=== PATIENT | female | born 1990 | race Caucasian/White ===

== ENCOUNTER 2018-04-19 03:38 | Inpatient (IN) | payer OTHER ==
[2018-04-19 04:42] VITALS: BMI 25.8
[2018-04-19] MEDS ORDERED: Lactated Ringer's 1,000 ML IV ONE ×2 (04:42)
[2018-04-19] MEDS ORDERED: Sodium Citrate/Citric Acid 15 ml Sol PO ONE (04:42)
[2018-04-19] MEDS ORDERED: cefOXitin IV 2 gm in Dextrose 2 GM/50 ML BAG IVPB ONE (04:42)
[2018-04-19] MEDS ORDERED: Lactated Ringer's 1,000 ML IV SCH (04:45)
--- NOTE | 2018-04-19 05:04 | OBHP ---
Datetime: 04/19/2018 04:45 IP Adm Impression: Term, intrauterine ; Active labor; Intact Membranes IP Admit Plan: Admit to unit; Initiate Section protocol Admit Comment, IP Provider: 28 y.o. , LMP 07/27/17, TAB 05/03/18, EGA 37w 6d confirmed by ultr asound, c/o Ctx - onset 2200 hours; now every 5 minutes, pain scale 8/10 to 9/10. (+) AFM; denies VB. [place] moist in the vagina approx 0411hours. care: Dr. Laci Beverly: noted for anemia. Also treated for UTI 2 weeks ago P Ob: C/S, 12/01 2012, male, 2.2 Kg, [place]. No other complications. Spont Ab x 2, both in 2016, jessica th at approx "2 weeks". 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 Denies abnormal Pap, STIs or myoma PMH: enies PSH: C/S Meds: PNV, iron - each QD NKDA Soc Hx: denies tobacco, illicit drug or EtOH use. x 7 years. 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 Fam Hx: MOther alive 45 y.o. Father alive 49 y.o., both no med issues. No known fam h/o cancer P.E.: as above. WD in discomfort with pain of contractions. Awake, alert, oriented to time, person and place. Pleasant and cooperative. present Assessment: 28 y.o. P1021, 37w 6d, prev C/S - early labor. No evidence of PROM. CAtegory 1 tracing . Patient last ate 2030 hours; last drank 2200 hours. Clinically stable. Plan: 1) Admit 2) NPO 3) Admission labs 4) Continuous EFM 5) Abdominal prep and shave 6) Buck 7) Notify anesthesia8) Notify peds 8) Mefoxin, supervisor electronics inspection to O.R. 9) Patient supervisor electronics inspection to O.R. - as per, and discussed with, Dr. Beverly Pelvic Type - PN: Adequate Extremities - PN: Normal Abdomen - PN: Normal Back - PN: Normal Breast - PN: Normal Lungs - PN: Normal Heart - PN: Normal Thyroid - PN: Not Done Neurologic - PN: Normal HEENT - PN: Normal General - PN: Normal Presentation-Admit: Vertex FHR - Baseline A Provider: 150 Membranes, Provider: Intact Contraction Comments Provider: 2 Comments, ACOG Physical Exam: Abdomen: Gravid. Firm, with contractions. Healed Pfannenstiel scar. Fu ndal height 37 cm. otherwise, non tender in all quadrants Perineum: moist - clear, mucous. Negative pooling; Negative nitrazine All other systems reviewed and are negative Gestation - Est Wks by US: 37w 6d EGA AdmitDate IP: 37.6 Vital Signs Provider: Reviewed IP Indication for Induction: Not Applicable IP Chief Complaint: Uterine contractions NICHD Variability Prov Fetus A: Moderate 6-25bpm NICHD Accel Fetus A IP Provider: 10X10 FHR Category Provider Fetus A: Category I NICHD Decel Fetus A IP Provider: None Dilatation, Provider: 1 Effacement, Provider: 40 Station, Provider: -1 Genitourinary Exam: Normal DTRs - PN: Normal
[2018-04-19 05:22] LABS: BASO # 0.1 K/uL (0.0-0.2); BASO % 0.5 % (0.0-2.0); EOS # 0.2 K/uL (0.0-0.7); EOS % 1.4 % (0.0-4.0); HEMOGLOBIN 13.3 g/dL (11.0-16.0); LYMPH # 1.9 K/uL (1.0-4.3); LYMPH % 15.2 % (20.0-40.0); MEAN CELL VOLUME 88.4 fL (81.0-99.0); MEAN CORPUSCULAR HEMOGLOBIN 29.9 pg (27.0-31.0); MEAN CORPUSCULAR HGB CONC 33.9 g/dL (33.0-37.0); MEAN PLATELET VOLUME 7.5 fL (7.2-11.7); MONO # 1.3 K/uL (0.0-0.8); MONO % 10.7 % (0.0-10.0); NEUT # 8.9 K/uL (1.8-7.0); NEUT % 72.2 % (50.0-75.0); NRBC % 0.1 % (0.0-2.0); RBC 4.45 Mil/uL (3.80-5.20); RED CELL DISTRIBUTION WIDTH 16.4 % (11.5-14.5); SQUAMOUS EPITHIAL < 1 /hpf (0-5); URINE BACTERIA RARE (<OCC); URINE BILIRUBIN NEGATIVE (NEGATIVE); URINE CLARITY Clear (Clear); URINE COLOR Colorless (YELLOW); URINE GLUCOSE (UA) NORMAL (Normal); URINE LEUKOCYTE ESTERASE NEG Leu/uL (Negative); URINE PROTEIN NEGATIVE (NEGATIVE); URINE UROBILINOGEN NORMAL mg/dL (0.2-1.0); WHITE BLOOD COUNT 12.4 K/uL (4.8-10.8)
[2018-04-19] MEDS ORDERED: cefOXitin IV 2 gm in Saline 2 GM/50 ML BAG IVPB ONE (05:36)
[2018-04-19] MEDS ORDERED: Morphine 1 mg/ml preservative-free Inj(Duramorph) ONE ×2 (05:50→07:10)
[2018-04-19 05:52] LABS: URINE BLOOD TRACE (NEGATIVE)
[2018-04-19] MEDS ORDERED: Oxytocin 20 units in LR 2,000 ML IV ONE (07:25)
[2018-04-19] MEDS ORDERED: DiphenhydrAMINE 50 mg/ml Inj IVP PRN (09:08)
[2018-04-19 16:53] LABS: RAPID PLASMA REAGIN NONREACTIVE (NONREACTIVE)
[2018-04-19] MEDS: ceFAZolin IV 1 gm in Dextrose 1 GM/50 ML BAG IVPB SCH (17:27)
[2018-04-19] MEDS: Gentamicin 80 mg in 0.9% NS 80 MG/100 ML BAG IVPB SCH (17:29)
[2018-04-20] MEDS: ceFAZolin IV 1 gm in Dextrose 1 GM/50 ML BAG IVPB SCH ×2 (00:32→08:29)
[2018-04-20] MEDS: Gentamicin 80 mg in 0.9% NS 80 MG/100 ML BAG IVPB SCH ×2 (02:06→11:05)
[2018-04-20] MEDS: Oxycodone/Acetaminophen 5/325 mg Tab PO PRN ×3 (05:46→20:01)
[2018-04-20 08:42] LABS: MEAN CELL VOLUME 89.4 fL (81.0-99.0); MEAN CORPUSCULAR HEMOGLOBIN 30.5 pg (27.0-31.0); MEAN CORPUSCULAR HGB CONC 34.1 g/dL (33.0-37.0); MEAN PLATELET VOLUME 7.3 fL (7.2-11.7); RBC 4.26 Mil/uL (3.80-5.20); RED CELL DISTRIBUTION WIDTH 16.9 % (11.5-14.5); WHITE BLOOD COUNT 17.5 K/uL (4.8-10.8)
[2018-04-20] MEDS: Prenatal Multivit/Folic Acid/Iron Tab PO SCH ×2 (10:06→10:08)
--- NOTE | 2018-04-20 13:35 | OBDS ---
DELIVERY PERSONNEL Delivery Doctor: Amanda Beverly MD Scrub Nurse: Madai Crews Bus [employer] Instructor: Liliana Duvall RN Anesthesiologist: Rob Bourne MD MATERNAL INFORMATION Medications in Delivery: Pitocin 20 units in 1000ml LR. Estimated Blood Loss (ml): 500 RN Comments: Rc/section to a live baby boy attended to by dr. Trevizo and Toby oliveros Rn. 9:9, sta ble, with father at mother's side. Provider Comments: Pelvic, Bladder and Omental Adhesion Previous C/Section in labor Old permanent suture material on fascia was removed. LABOR SUMMARY EDC: 05/04/2018 00:00 No. Babies in Womb: 1 Attempted: No Labor Anesthesia: None LABOR INFORMATION Onset of Labor: 04/18/2018 22:00 Group B Beta Strep: Negative Antibiotics # of Doses: 1 Antibiotics Time of Last Dose: 0700 MEMBRANES Membranes Rupture Method: Artificial Rupture of Membranes: 04/19/2018 08:07 Length of Rupture (hrs): 0.02 Amniotic Fluid Color: clear Amniotic Fluid Amount: Moderate Amniotic Fluid Odor: Normal STAGES OF LABOR Stage 3 hrs: 0 Stage 3 min: 1 Total Time in Labor hrs: 10 Total Time in Labor min: 9 CSECTION DELIVERY Primary Indication: Repeat Elective CSection Urgency: Elective CSection Incidence: Repeat Labor: Labor Elective: Elective CSection Incision: Lower Uterine Transverse BABY A INFORMATION Infant Delivery Date/Time: 04/19/2018 08:08 Method of Delivery: Born in Route : No : N/A Forceps: N/A Vacuum Extraction: N/A Shoulder Dystocia : No SHOULDER DYSTOCIA BABY A Infant Delivery Date/Time: 04/19/2018 08:08 PRESENTATION/POSITION BABY A Presentation: Cephalic Cephalic Presentation: Vertex Vertex Position: Left Occipital Anterior Breech Presentation: N/A PLACENTA INFORMATION BABY A Placenta Delivery Time : 04/19/2018 08:09 Placenta Method of Delivery: Manual Removal Placenta Status: Delivered SCORES BABY A Heart Rate 1 min: >100 bpm Resp Effort 1 min: Good Cry Reflex Irritability 1 min: Cough or Sneeze or Pulls Away Muscle Tone 1 min: Active Motion Color 1 min: Body [place], Extremities Blue SCORE 1 MIN: 9 Heart Rate 5 min: >100 bpm Resp Effort 5 min: Good Cry Reflex Irritability 5 min: Cough or Sneeze or Pulls Away Muscle Tone 5 min: Active Motion Color 5 min: Body [place], Extremities Blue SCORE 5 MIN: 9 INFORMATION BABY A Gestational Age at Delivery: 37.6 Gestational Status: Term Outcome : Liveborn Condition : Stable Infant Sex: Male IDENTIFICATION/MEDS BABY A ID Band Number: [id number] ID Band Location: Left Leg; Left Arm Sensor Applied: Yes Sensor Number: [id number] Sensor Location : Cord Clamp Vitamin K Given : Not Given Erythromycin Given: Not Given WEIGHT/LENGTH BABY A Infant Birthweight (gms): 2720 Weight (lb): 6 Infant Weight (oz): 0 Infant Length Inches: 18.50 Length cms: 47.0 CORD INFORMATION BABY A No. Cord Vessels: 3 Nuchal Cord : N/A True Knot: 0 Cord Blood Taken: Yes Infant Suction: Mouth; Nose ASSESSMENT BABY A Complications: None Physical Findings at Delivery: Within Normal Limits Infant Respirations: Appears Normal Insurance Coder/ALS Called : No Care By: and Alexei Transferred To: Remains with Mother
--- NOTE | 2018-04-20 13:35 | OBDS ---
DELIVERY PERSONNEL Delivery Doctor: Amanda Beverly MD Scrub Nurse: Madai Crews Electronic Communications Technician: Liliana Duvall RN Anesthesiologist: Rob Bourne MD MATERNAL INFORMATION Medications in Delivery: Pitocin 20 units in 1000ml LR. Estimated Blood Loss (ml): 500 RN Comments: Rc/section to a live baby boy attended to by dr. Trevizo and Toby oliveros Rn. 9:9, sta ble, with father at mother's side. Provider Comments: Pelvic, Bladder and Omental Adhesion Previous C/Section in labor Old permanent suture material on fascia was removed. LABOR SUMMARY EDC: 05/04/2018 00:00 No. Babies in Womb: 1 Attempted: No Labor Anesthesia: None LABOR INFORMATION Onset of Labor: 04/18/2018 22:00 Group B Beta Strep: Negative Antibiotics # of Doses: 1 Antibiotics Time of Last Dose: 0700 MEMBRANES Membranes Rupture Method: Artificial Rupture of Membranes: 04/19/2018 08:07 Length of Rupture (hrs): 0.02 Amniotic Fluid Color: clear Amniotic Fluid Amount: Moderate Amniotic Fluid Odor: Normal STAGES OF LABOR Stage 3 hrs: 0 Stage 3 min: 1 Total Time in Labor hrs: 10 Total Time in Labor min: 9 CSECTION DELIVERY Primary Indication: Repeat Elective CSection Urgency: Elective CSection Incidence: Repeat Labor: Labor Elective: Elective CSection Incision: Lower Uterine Transverse BABY A INFORMATION Infant Delivery Date/Time: 04/19/2018 08:08 Method of Delivery: Born in Route : No : N/A Forceps: N/A Vacuum Extraction: N/A Shoulder Dystocia : No SHOULDER DYSTOCIA BABY A Infant Delivery Date/Time: 04/19/2018 08:08 PRESENTATION/POSITION BABY A Presentation: Cephalic Cephalic Presentation: Vertex Vertex Position: Left Occipital Anterior Breech Presentation: N/A PLACENTA INFORMATION BABY A Placenta Delivery Time : 04/19/2018 08:09 Placenta Method of Delivery: Manual Removal Placenta Status: Delivered SCORES BABY A Heart Rate 1 min: >100 bpm Resp Effort 1 min: Good Cry Reflex Irritability 1 min: Cough or Sneeze or Pulls Away Muscle Tone 1 min: Active Motion Color 1 min: Body [place], Extremities Blue SCORE 1 MIN: 9 Heart Rate 5 min: >100 bpm Resp Effort 5 min: Good Cry Reflex Irritability 5 min: Cough or Sneeze or Pulls Away Muscle Tone 5 min: Active Motion Color 5 min: Body [place], Extremities Blue SCORE 5 MIN: 9 INFORMATION BABY A Gestational Age at Delivery: 37.6 Gestational Status: Term Outcome : Liveborn Condition : Stable Infant Sex: Male IDENTIFICATION/MEDS BABY A ID Band Number: [id number] ID Band Location: Left Leg; Left Arm Sensor Applied: Yes Sensor Number: [id number] Sensor Location : Cord Clamp Vitamin K Given : Not Given Erythromycin Given: Not Given WEIGHT/LENGTH BABY A Infant Birthweight (gms): 2720 Weight (lb): 6 Infant Weight (oz): 0 Infant Length Inches: 18.50 Length cms: 47.0 CORD INFORMATION BABY A No. Cord Vessels: 3 Nuchal Cord : N/A True Knot: 0 Cord Blood Taken: Yes Infant Suction: Mouth; Nose ASSESSMENT BABY A Complications: None Physical Findings at Delivery: Within Normal Limits Infant Respirations: Appears Normal [employer] Bus Driver/ALS Called : No Care By: and Alexei Transferred To: Remains with Mother
[2018-04-21] MEDS: Oxycodone/Acetaminophen 5/325 mg Tab PO PRN ×3 (01:56→17:53)
[2018-04-21] MEDS: Prenatal Multivit/Folic Acid/Iron Tab PO SCH (09:29)
[2018-04-22] MEDS: Oxycodone/Acetaminophen 5/325 mg Tab PO PRN (01:21)
[2018-04-22 09:22] VITALS: BP 108/75; PULSE 91; RESP 18; TEMP 97.8; O2SAT 100
[2018-04-22] MEDS: Prenatal Multivit/Folic Acid/Iron Tab PO SCH (09:45)
--- NOTE | 2018-04-22 10:43 | OBPPN ---
Datetime: 04/22/2018 10:40 PP Pain Prov: Within normal limits PP Breasts Prov: Normal PP Heart Prov: Normal PP Lungs Prov: Normal PP Abdomen/Uterus Prov: Normal PP Lochia Prov: Normal PP Vulva/Perineum Prov: Normal PP CVA Tenderness Prov: Normal PP Extremities Prov: Normal PP C/S Incision Prov: Normal PP Progress Prov: Normal PP Impression Prov: Normal progression PP Plan Prov: Continue present management IP PP Procedures: None Datetime: 04/20/2018 13:35 Vital Signs Provider PP: Within Normal Limits
--- NOTE | 2018-04-22 10:46 | OBDCSUM ---
Datetime: 04/22/2018 10:42 Discharged to, Provider: Home Follow up at, Provider: Dr. Beverly Disch Instr Activity: Normal activity Disch Instr Diet: Regular Discharge Instructions, Provider: Routine instructions given Discharge Diagnosis, Provider: Labor Discharge Time: 04/22/2018 10:43 Follow up in weeks, Provider: 4 weeks Disch Referrals: None Contraception discussed, Prov: Yes
== END 2018-04-22 13:30 | disposition home or self-care (01) | DRG 766 ==
LOC: C.EROB 03:38 → C.4D 04:45 → C.4M 12:16
PROVIDERS: ADMIT Obstetrics & Gynecology Gynecology; ATTEND Obstetrics & Gynecology Gynecology
PROC: 10D00Z1 Extraction of Products of Conception, Low, Open Approach (ICD-10-PCS; principal; 2018-04-19)
PROC: 0DNW0ZZ Release Peritoneum, Open Approach (ICD-10-PCS; 2018-04-19)
DX: O34.211 Maternal care for low transverse scar from previous cesarean delivery (principal); O75.82 Onset (spontaneous) of labor after 37 completed weeks of gestation but before 39 completed weeks gestation, with delivery by (planned) cesarean section; O99.02 Anemia complicating childbirth; D64.9 Anemia, unspecified; N99.4 Postprocedural pelvic peritoneal adhesions; Z3A.37 37 weeks gestation of pregnancy; Z37.0 Single live birth